=== PATIENT | female | born 1935 | race Caucasian/White ===

== ENCOUNTER 2020-01-10 07:42 | Day surgery (SDC) | payer MEDICARE, BC ==
[2020-01-10] MEDS ORDERED: fentaNYL 100 MCG/2 ML SDV ONE ×2 (07:54→09:02)
[2020-01-10] MEDS ORDERED: Propofol 200 MG/20 ML SDV ONE ×2 (07:55→09:02)
[2020-01-10] MEDS ORDERED: Lactated Ringers 1,000 ML IV SCH (08:00)
[2020-01-10] MEDS ORDERED: Sodium Chloride 0.9% 10 ML Syringe FLUSH PRN (08:00)
[2020-01-10] MEDS ORDERED: Ondansetron 4 MG/2 ML SDV ONE ×2 (09:02)
[2020-01-10] MEDS ORDERED: Dexamethasone 10 MG/ML SDV ONE (09:02)
[2020-01-10] MEDS ORDERED: Lidocaine 2% 100 MG/5 ML Syringe ONE (09:02)
[2020-01-10] MEDS ORDERED: ceFAZolin 1 GM Vial ONE (09:02)
[2020-01-10] MEDS ORDERED: Bupivacaine 0.5% 10 ML SDV INJECT ONE (10:02)
--- NOTE | 2020-01-10 14:40 | PCM.OPNOTE ---
- General Post-Op/Procedure Note Date of Surgery/Procedure: 01/10/20 Operative Procedure(s): left cubital tunnel release Pre Op Diagnosis: left cubital tunnel syndrome Post-Op Diagnosis: Same Anesthesia Technique: General LMA Primary Surgeon: Rudi Brooks EBL in mLs: 50 Complications: None Condition: Good
[2020-01-10 14:41] VITALS: BP 124/73; PULSE 77
--- NOTE | 2020-01-10 17:24 | OR ---
Date of Procedure: 01/10/2020 PREOPERATIVE DIAGNOSIS: Left cubital tunnel syndrome. POSTOPERATIVE DIAGNOSIS: Left cubital tunnel syndrome. PROCEDURE: Left cubital tunnel release. ANESTHESIA: General LMA. FLUIDS: Lactated Ringer's solution. ESTIMATED BLOOD LOSS: 50 mL. COMPLICATIONS: None. SPECIMENS: None. DISCHARGE DISPOSITION: Stable to PACU. HISTORY AND INDICATIONS FOR THE PROCEDURE: The patient was seen preoperatively by myself with Anesthesia staff in the preoperative holding area where the operative site was marked. She was brought to the operating suite by the Anesthesia staff, where general anesthesia was administered. All extremities found to be well padded. Preoperatively, left upper extremity was exsanguinated and tourniquet was placed. This was a simple band tourniquet. The left upper extremity was then prepped and draped in a sterile manner. A time out was called identifying the correct patient, correct procedure, and correct site, and antibiotics had been given at the appropriate period of time. The patient was seen preoperatively in the clinic, EMG confirmed the above mentioned diagnosis. Risks and goals of the procedure were explained to the patient, informed consent was obtained. DESCRIPTION OF PROCEDURE: An incision was marked between the olecranon and medial epicondyle extending approximately 4 cm proximally and distally going through the skin. A great deal of adipose tissue was visualized and moved out of the way. Avilez were used for retraction with my assistant unit forester. I carefully went through with Metzenbaum spreading to avoid any injury to any musculocutaneous nerves that I saw. Proximally, the ulnar nerve was actually not inside the fascia that would be between the anterior to the triceps under the intermuscular septum but was easily visualized. I felt up to the arcade of Mears, which did not appear to be compressed. I then moved distally and was able to easily visualize the ulnar nerve sitting just medially to the intermuscular septum dividing the pronator and the flexor digitorum superficialis. I then focused on freeing up the cubital tunnel. This was done very slowly with Metzenbaum and then the motor branch of the FCU ulnar head was visualized and protected. Before I concentrated on the undersurface of the ulnar nerve to free, I then made a flap, one flap was at about the area just proximal to the medial epicondyle and the second flap was more distal. I did remove the portion of the intramuscular septum between the flexor digitorum superficialis and pronator so that the ulnar would sit flat. I then freed up the underside of the ulnar nerve and then transposed it and then very loosely flapped it anteriorly. There was no kinking or pressure on the ulnar nerve. We then closed the incision subcutaneously with 2-0 Vicryl and then closed superficially skin with 3-0 nylon, it came together nicely. I also placed some Surgicel for minimal bleeding. Bleeding was controlled with Bovie electrocautery during the case. We then covered this with Betadine-soaked Adaptic, 4 x 4, and Toby wrap. The patient was then allowed to wake from anesthesia and discharged to the PACU in stable condition. GALILEO Brooks DO, DO /[id number]
== END 2020-01-10 11:55 ==
LOC: LL.SDS 07:42
PROVIDERS: ATTEND Orthopaedic Surgery
DX: G56.22 Lesion of ulnar nerve, left upper limb (principal); I10 Essential (primary) hypertension; E03.9 Hypothyroidism, unspecified; Z79.899 Other long term (current) drug therapy; Z88.2 Allergy status to sulfonamides; Z88.8 Allergy status to other drugs, medicaments and biological substances
CPT/HCPCS: 64718; J0690; J1100; J2001; J2405; J2704; J3010; J3490; J7120; 01710

== ENCOUNTER 2021-06-16 09:36 | Emergency (ER) | payer MEDICARE, BC ==
[2021-06-16 09:38] VITALS: BP 144/73; PULSE 76
[2021-06-16] MEDS: Acetaminophen/HYDROcodone 325-5 MG Tab PO ONE (10:13)
== END 2021-06-16 13:25 | disposition home or self-care (01) ==
LOC: LL.ED 09:36
DX: M54.50 Low back pain, unspecified (principal); E78.00 Pure hypercholesterolemia, unspecified; I10 Essential (primary) hypertension; E03.9 Hypothyroidism, unspecified; E66.9 Obesity, unspecified; M19.90 Unspecified osteoarthritis, unspecified site; Z68.30 Body mass index [BMI] 30.0-30.9, adult; Z86.73 Personal history of transient ischemic attack (TIA), and cerebral infarction without residual deficits; Z88.2 Allergy status to sulfonamides; Z88.8 Allergy status to other drugs, medicaments and biological substances; Z79.899 Other long term (current) drug therapy; Z79.82 Long term (current) use of aspirin
CPT/HCPCS: 74150; 81001; 99283; 99284-25; A9270-GY

== ENCOUNTER 2024-05-13 11:37 | Emergency (ER) | payer MEDICARE, BC ==
[2024-05-13 12:24] LABS: BASOPHILS ABSOLUTE AUTO 0.03 K/uL (0.00-0.20); BASOPHILS PERCENT AUTO 0.2 % (0.0-2.0); HEMOGLOBIN 13.1 g/dL (11.7-15.5); IMMATURE GRAN ABSOLUTE AUTO 0.07 10^3/uL (0.00-0.50); IMMATURE GRAN PERCENT AUTO 0.5 % (0.0-5.0); LYMPHOCYTES ABSOLUTE AUTO 1.63 K/uL (0.50-3.50); MEAN CORPUSCULAR HEMOGLOBIN 31.6 pg (28.2-33.3); MEAN CORPUSCULAR HGB CONC 33.6 g/dL (31.7-36.0); MEAN CORPUSCULAR VOLUME 94.2 fL (84.0-98.0); MONOCYTES ABSOLUTE AUTO 4.14 K/uL (0.00-1.00); MONOCYTES PERCENT AUTO 30.5 % (2.0-14.0); NEUTROPHILS ABSOLUTE AUTO 7.69 K/uL (1.40-7.00); NEUTROPHILS PERCENT AUTO 56.8 % (45.0-80.0); PLATELET COUNT,PLT 148 K/uL (150-350); RED BLOOD CELL COUNT 4.14 M/uL (3.77-5.09); RED CELL DISTRIBUTION WIDTH 13.7 % (11.2-14.1); WHITE BLOOD CELL COUNT,WBC 13.6 K/uL (4.0-10.2)
[2024-05-13 12:51] LABS: BILIRUBIN TOTAL 1.5 mg/dL (0.2-1.0); CALCIUM 8.8 mg/dL (8.5-10.1); CARBON DIOXIDE,CO2 24.8 mmol/L (21.0-32.0); CREATININE 0.81 mg/dL (0.51-1.17); EST CRCL DRUG DOSING (CG) 33.82 mL/min; MAGNESIUM 2.2 mg/dL (1.8-2.4); POTASSIUM,K 3.5 mmol/L (3.5-5.1); PROTEIN TOTAL,TP 7.8 g/dL (6.4-8.2)
[2024-05-13 12:52] LABS: ANION GAP 15.7 meq/L (7-15)
[2024-05-13] MEDS: traMADol 50 MG Tab PO ONE (13:58)
[2024-05-13 19:37] VITALS: BP 134/71; PULSE 102
== END 2024-05-13 19:00 ==
LOC: LL.ED 11:37
DX: M54.2 Cervicalgia (principal); R53.1 Weakness; Z74.09 Other reduced mobility; Z98.890 Other specified postprocedural states; I10 Essential (primary) hypertension; E78.00 Pure hypercholesterolemia, unspecified; E03.9 Hypothyroidism, unspecified; E66.9 Obesity, unspecified; Z79.890 Hormone replacement therapy; Z79.899 Other long term (current) drug therapy; Z79.82 Long term (current) use of aspirin; Z79.1 Long term (current) use of non-steroidal anti-inflammatories (NSAID); Z88.6 Allergy status to analgesic agent; Z88.2 Allergy status to sulfonamides; Z68.28 Body mass index [BMI] 28.0-28.9, adult
CPT/HCPCS: 36415; 70450; 72125; 80053; 83735; 85025; 99285; A9270-GY

== ENCOUNTER 2024-05-17 11:37 | Inpatient (IN) | payer MEDICARE, BC ==
[2024-05-17] MEDS ORDERED: Bisacodyl 10 MG Supp RECTAL PRN (15:47)
[2024-05-17] MEDS ORDERED: Ibuprofen 600 MG Tab PO PRN (15:47)
[2024-05-17] MEDS ORDERED: Non-Formulary Medication 1 Each (Docusate Sodium [Docusate Sodium] 283 MG/5 ML Enema) RC PRN (15:47)
[2024-05-17] MEDS ORDERED: Melatonin 3 MG Tab PO PRN (15:47)
[2024-05-17] MEDS ORDERED: Ondansetron 4 MG Tab.DIS PO PRN (15:47)
[2024-05-17] MEDS ORDERED: Acetaminophen/HYDROcodone 325-5 MG Tab PO PRN (15:47)
[2024-05-17] MEDS ORDERED: Sennosides/Docusate Sodium 50-8.6 MG Tab PO PRN (15:47)
[2024-05-17] MEDS: tiZANidine 4 MG Tab PO SCH (17:06)
[2024-05-17] MEDS: Acetaminophen 650 MG Tab.ER PO SCH (17:06)
[2024-05-17] MEDS: amLODIPine 5 MG Tab PO SCH (17:07)
[2024-05-17] MEDS: Remove Patch LIDOCAINE PATCH TRDERM SCH (20:15)
[2024-05-18] MEDS: Lisinopril 10 MG Tab PO SCH (07:35)
[2024-05-18] MEDS: Levothyroxine 50 MCG Tab PO SCH (07:35)
[2024-05-18] MEDS: Lutein/Minerals/Vitamin C/Vitamin E Acetate Cap PO SCH (07:36)
[2024-05-18] MEDS: Lidocaine 4% 1 each Patch TOP SCH (08:56)
[2024-05-22] MEDS: Polyethylene Glycol 3350 Powder 17 GM Packet PO PRN (07:56)
[2024-05-24 12:07] VITALS: BP 133/60; PULSE 71
== END 2024-05-24 12:56 | disposition home or self-care (01) | DRG 948 ==
LOC: LL.MS 13:19
PROVIDERS: ADMIT Physician Assistant; ATTEND Physician Assistant
DX: R53.81 Other malaise (principal); R53.1 Weakness; Z66 Do not resuscitate; I10 Essential (primary) hypertension; H91.90 Unspecified hearing loss, unspecified ear; H54.7 Unspecified visual loss; E78.00 Pure hypercholesterolemia, unspecified; K59.09 Other constipation; E66.9 Obesity, unspecified; Z74.09 Other reduced mobility; M54.50 Low back pain, unspecified; E03.9 Hypothyroidism, unspecified; G47.00 Insomnia, unspecified; M54.2 Cervicalgia; G89.29 Other chronic pain; Z98.890 Other specified postprocedural states; Z88.2 Allergy status to sulfonamides; Z88.8 Allergy status to other drugs, medicaments and biological substances; Z79.899 Other long term (current) drug therapy; Z68.29 Body mass index [BMI] 29.0-29.9, adult; Z90.89 Acquired absence of other organs; Z78.9 Other specified health status
CPT/HCPCS: 97110-GO; 97110-GP; 97112-GP; 97140-GP; 97161-GP; 97166-GO; 97530-GO; 97530-GP; 97535-GO; 99306; 99316; A9270-GY

== ENCOUNTER 2024-07-08 09:33 | Emergency (ER) | payer MEDICARE, BC ==
[2024-07-08 09:56] LABS: BASOPHILS ABSOLUTE AUTO 0.01 K/uL (0.00-0.20); BASOPHILS PERCENT AUTO 0.1 % (0.0-2.0); EOSINOPHILS ABSOLUTE AUTO 0.03 K/uL (0.00-0.50); EOSINOPHILS PERCENT AUTO 0.4 % (0.0-5.0); HEMOGLOBIN 12.4 g/dL (11.7-15.5); IMMATURE GRAN ABSOLUTE AUTO 0.03 10^3/uL (0.00-0.04); IMMATURE GRAN PERCENT AUTO 0.4 % (0.0-0.4); LYMPHOCYTES ABSOLUTE AUTO 0.04 K/uL (0.50-3.50); LYMPHOCYTES PERCENT AUTO 0.5 % (10.0-50.0); MEAN CORPUSCULAR HEMOGLOBIN 31.8 pg (28.2-33.3); MEAN CORPUSCULAR HGB CONC 33.5 g/dL (31.7-36.0); MEAN CORPUSCULAR VOLUME 94.9 fL (84.0-98.0); MONOCYTES ABSOLUTE AUTO 4.15 K/uL (0.00-1.00); MONOCYTES PERCENT AUTO 49.3 % (2.0-14.0); NEUTROPHILS ABSOLUTE AUTO 4.15 K/uL (1.40-7.00); NEUTROPHILS PERCENT AUTO 49.3 % (45.0-80.0); PLATELET COUNT,PLT 211 K/uL (150-350); RED CELL DISTRIBUTION WIDTH 15.8 % (11.2-14.1); WHITE BLOOD CELL COUNT,WBC 8.4 K/uL (4.0-10.2)
[2024-07-08 10:10] LABS: ALBUMIN 3.7 g/dL (3.4-5.0); ANION GAP 10.9 meq/L (7-15); BILIRUBIN TOTAL 1.1 mg/dL (0.2-1.0); CALCIUM 8.7 mg/dL (8.5-10.1); CARBON DIOXIDE,CO2 25.1 mmol/L (21.0-32.0); CREATININE 0.75 mg/dL (0.51-1.17); EST CRCL DRUG DOSING (CG) 36.53 mL/min; POTASSIUM,K 3.6 mmol/L (3.5-5.1); PROTEIN TOTAL,TP 7.5 g/dL (6.4-8.2)
[2024-07-08 10:35] VITALS: BP 106/62; PULSE 88
== END 2024-07-08 11:03 | disposition home or self-care (01) ==
LOC: SUPCPDRO 09:33 → LL.ED 09:33
DX: M79.662 Pain in left lower leg (principal); I10 Essential (primary) hypertension; E78.00 Pure hypercholesterolemia, unspecified; E03.9 Hypothyroidism, unspecified; Z88.5 Allergy status to narcotic agent; Z88.0 Allergy status to penicillin; Z79.890 Hormone replacement therapy; Z79.899 Other long term (current) drug therapy; Z86.73 Personal history of transient ischemic attack (TIA), and cerebral infarction without residual deficits
CPT/HCPCS: 36415; 80053; 85025; 85379; 99283; 99284